=== PATIENT | female | born 1975 | race Caucasian/White ===

== ENCOUNTER → 2024-01-21 13:32 | Outpatient (REF) | payer BC, SELFPAY | LOC: RAD 13:32 | PROVIDERS: ATTENDING PHYSICIAN Internal Medicine | DX: K90.0 Celiac disease (principal); E55.9 Vitamin D deficiency, unspecified; N27.9 Small kidney, unspecified | CPT/HCPCS: 77080 ==

== ENCOUNTER → 2024-04-07 11:11 | Outpatient (REF) | payer BC, SELFPAY ==
[2024-04-08 15:21] LABS: tTG IgA Antibody 7.5 EU/ml (0-19); tTG IgG Antibody 7.7 EU/ml (0-19)
[2024-04-08 23:39] LABS: IgA 227 mg/dl (70-400)
[2024-04-09 23:55] LABS: Endomysial IgA Antibody Titer <1:10 (<1:10)
== END ==
LOC: REG 11:11
PROVIDERS: ATTENDING PHYSICIAN Internal Medicine Gastroenterology; FAMILY PHYSICIAN Internal Medicine
DX: K90.0 Celiac disease (principal)
CPT/HCPCS: 36415; 82784; 83516; 86231

== ENCOUNTER → 2024-04-21 06:27 | Day surgery (SDC) | payer BC, SELFPAY ==
[2024-04-21 07:53] LABS: Glucose - Point of Care 116 mg/dl (70-99)
== END ==
LOC: GI 06:27
PROVIDERS: ATTENDING PHYSICIAN Internal Medicine Gastroenterology
DX: Z12.11 Encounter for screening for malignant neoplasm of colon (principal); K64.0 First degree hemorrhoids; K62.89 Other specified diseases of anus and rectum; R19.4 Change in bowel habit; K63.5 Polyp of colon; K22.89 Other specified disease of esophagus; K29.50 Unspecified chronic gastritis without bleeding; K90.0 Celiac disease
CPT/HCPCS: 45380; 43239; 88305; 82962; 88342

== ENCOUNTER → 2024-05-21 10:03 | Outpatient (REF) | payer BC, SELFPAY | LOC: HWWDC 10:03 | PROVIDERS: ATTENDING PHYSICIAN Obstetrics & Gynecology; FAMILY PHYSICIAN Internal Medicine; REFERRING PHYSICIAN Obstetrics & Gynecology | DX: N93.9 Abnormal uterine and vaginal bleeding, unspecified (principal); N39.0 Urinary tract infection, site not specified | CPT/HCPCS: 76770; 76830; 76856; 77063; 77067 ==

== ENCOUNTER → 2024-07-16 10:53 | Outpatient (REF) | payer BC, SELFPAY | LOC: WDC 10:53 | PROVIDERS: ATTENDING PHYSICIAN Obstetrics & Gynecology; FAMILY PHYSICIAN Internal Medicine; REFERRING PHYSICIAN Obstetrics & Gynecology | DX: R92.30 Dense breasts, unspecified (principal); N83.209 Unspecified ovarian cyst, unspecified side | CPT/HCPCS: 76641; 76830; 76856 ==

== ENCOUNTER → 2024-08-21 19:31 | Outpatient (REF) | payer BC, SELFPAY | LOC: MRI 19:31 | PROVIDERS: ATTENDING PHYSICIAN Obstetrics & Gynecology Gynecologic Oncology; FAMILY PHYSICIAN Internal Medicine | DX: R19.04 Left lower quadrant abdominal swelling, mass and lump (principal); N92.4 Excessive bleeding in the premenopausal period; Z12.4 Encounter for screening for malignant neoplasm of cervix; N39.3 Stress incontinence (female) (male) | CPT/HCPCS: 72197; A9575 ==

== ENCOUNTER 2024-10-05 06:08 | Day surgery (SDC) | payer BC, SELFPAY ==
[2024-10-05 06:40] VITALS: BMI 24.1
[2024-10-05 06:42] VITALS: BP 115/69
[2024-10-05 06:56] LABS: Glucose - Point of Care 119 mg/dl (70-99)
[2024-10-05] MEDS: NORMOSOL-R/PLASMALYTE-A 1000 IV (06:59)
--- NOTE | 2024-10-05 07:03 | PTCARENOTE ---
Patient has a continuous basal rate of Fiasp Insulin at 0.6 units per hour. Per anesthesia keep the basal rate running. Will monitor patient.
[2024-10-05 07:43] VITALS: BP 117/61
[2024-10-05 07:45] VITALS: BP 109/63
[2024-10-05 08:00] VITALS: BP 114/68
[2024-10-05 08:15] VITALS: BP 125/71
== END 2024-10-05 09:05 | disposition home or self-care (01) ==
LOC: SDS 06:08
PROVIDERS: ATTENDING PHYSICIAN Obstetrics & Gynecology
DX: N36.42 Intrinsic sphincter deficiency (ISD) (principal); N39.3 Stress incontinence (female) (male)
CPT/HCPCS: 51715; 82962; L8606

== ENCOUNTER → 2025-02-12 11:22 | Outpatient (REF) | payer BC, SELFPAY | LOC: HWRAD 11:22 | PROVIDERS: ATTENDING PHYSICIAN Nurse Practitioner Adult Health; FAMILY PHYSICIAN Internal Medicine | DX: R13.10 Dysphagia, unspecified (principal) | CPT/HCPCS: 76536 ==

== ENCOUNTER → 2025-03-16 13:35 | Outpatient (REF) | payer BC, SELFPAY | LOC: RAD 13:35 | PROVIDERS: ATTENDING PHYSICIAN Registered Nurse; FAMILY PHYSICIAN Internal Medicine | DX: N95.0 Postmenopausal bleeding (principal) | CPT/HCPCS: 76830; 76856 ==